=== PATIENT | male | born 2000 | race Caucasian/White ===

== ENCOUNTER 2023-09-25 17:47 | Emergency (ER) | payer BC ==
[~2023-09-25] VITALS: Ht 182.9 cm; Wt 93.0 kg
[2023-09-25 17:50] VITALS: BP_SYST 136; PULSE 108; RESP 18; TEMP 98; O2SAT 97
[2023-09-25 19:41] VITALS: BP_SYST 136; PULSE 108; RESP 18; TEMP 98; O2SAT 97
== END 2023-09-25 19:41 ==
LOC: SED 17:47
DX: S83.8X2A Sprain of other specified parts of left knee, initial encounter (principal); Y04.0XXA Assault by unarmed brawl or fight, initial encounter; Y93.89 Activity, other specified; Y92.89 Other specified places as the place of occurrence of the external cause; Y99.8 Other external cause status
CPT/HCPCS: 73564; 99283

== ENCOUNTER 2024-01-11 14:03 | Emergency (ER) | payer BC ==
[~2024-01-11] VITALS: Ht 182.9 cm; Wt 90.7 kg
[2024-01-11 14:12] VITALS: BP_SYST 149; PULSE 96; RESP 18; TEMP 96.9; O2SAT 99
[2024-01-11 14:39] VITALS: BP_SYST 149; PULSE 96; RESP 18; TEMP 96.9; O2SAT 99
== END 2024-01-11 14:39 ==
LOC: SED 14:03
DX: S69.81XA Other specified injuries of right wrist, hand and finger(s), initial encounter (principal); Y04.0XXA Assault by unarmed brawl or fight, initial encounter; Y93.89 Activity, other specified; Y92.89 Other specified places as the place of occurrence of the external cause; Y99.8 Other external cause status
CPT/HCPCS: 99283